=== PATIENT | male | born 1990 ===

== ENCOUNTER 2017-06-11 16:27 | Emergency (ER) | payer OTHER ==
[2017-06-11] MEDS ORDERED: ACETAMINOPHEN TAB 325 MG TAB PO STA (17:56)
[2017-06-11] MEDS ORDERED: SODIUM CHLORIDE 0.9% 1,000 ML IV ONE (17:56)
[2017-06-11] MEDS ORDERED: KETOROLAC 30 MG/ML 1 ML VIAL IVP STA (17:56)
--- NOTE | 2017-06-11 18:04 | ED ---
Wound/Laceration HPI - General Chief Complaint: Wound/Laceration Stated Complaint: Finger Infection Time Seen by Provider: 06/11/17 17:42 Source: patient Mode of arrival: ambulatory Limitations: no limitations - History of Present Illness Initial Comments: 27-year-old male patient presents to the emergency department today for evaluation of an infection to the left index finger. Patient states that he cut his finger while working on a car approximate 2 weeks ago. Patient states that for the last week the finger has been having increased swelling and pain. Patient states that today the pain is radiating up to his shoulder. Patient states that he feels feverish and chilled. Patient is currently at [facility] for rehabilitation related to cocaine use. Patient denies any previous injectable drug use. He denies any numbness or tingling to the hand or finger. He denies any other significant past medical history. Patient denies any recent rash, shortness breath, chest pain, abdominal pain, nausea, vomiting, diarrhea, constipation, back pain, numbness, tingling, dizziness, weakness, hematuria, dysuria, urinary urgency, urinary frequency, headache, visual changes , or any other complaints. - Related Data Home Medications Medication Instructions Recorded Confirmed Acetaminophen Tab [Tylenol Tab] 650 mg PO Q4H PRN 06/11/17 06/11/17 Calcium/Magnesium 1000mg/500mg 1 tab PO TID PRN 06/11/17 06/11/17 Chlorpheniramine Maleate 4 mg PO Q4H PRN 06/11/17 06/11/17 [Chlor-Trimeton] Ibuprofen [Motrin] 600 mg PO Q6HR PRN 06/11/17 06/11/17 Multivitamins, Thera [Multivitamin 1 tab PO DAILY 06/11/17 06/11/17 (formulary)] Ondansetron HCl [Zofran] 8 mg PO Q6H PRN 06/11/17 06/11/17 Ondansetron [Zofran] 4 mg IM Q6H PRN 06/11/17 06/11/17 Sulfamethox-Tmp 800-160Mg [Bactrim 1 tab PO BID 06/11/17 06/11/17 DS 800-160 mg] Thiamine [Vitamin B-1] 100 mg PO DAILY 06/11/17 06/11/17 busPIRone HCl [Buspar] 10 mg PO TID PRN 06/11/17 06/11/17 cloNIDine HCL [Catapres] 0.1 mg PO Q4H PRN 06/11/17 06/11/17 guaiFENesin [guaiFENesin Oral 200 mg PO Q4H PRN 06/11/17 06/11/17 Solution] traZODone HCL 50 - 150 mg PO HS 06/11/17 06/11/17 Previous Rx's Medication Instructions Recorded Cephalexin [Keflex] 500 mg PO Q6H #40 cap 06/11/17 Ibuprofen [Motrin] 600 mg PO Q8HR PRN #30 tab 06/11/17 Sulfamethoxazole/Trimethoprim 1 each PO BID #20 tablet 06/11/17 [Bactrim DS 800-160 mg] Allergies Allergy/AdvReac Type Severity Reaction Status Date / Time No Known Allergies Allergy Verified 06/11/17 17:45 Review of Systems ROS Statement: Those systems with pertinent positive or pertinent negative responses have been documented in the HPI. ROS Other: All systems not noted in ROS Statement are negative. Past Medical History Past Medical History: No Reported History History of Any Multi-Drug Resistant Organisms: None Reported Past Surgical History: No Surgical Hx Reported Past Psychological History: No Psychological Hx Reported Smoking Status: Current every day smoker Past Alcohol Use History: None Reported Past Drug Use History: None Reported General Exam Limitations: no limitations General appearance: alert, in no apparent distress, other (This is a well- developed, well-nourished adult male patient in mild distress related to pain. Vital signs upon presentation are temperature 100.5F, pulse 90, respirations 20 , blood pressure 121/67, pulse ox 98% on room air.) ENT exam: Present: normal exam, normal oropharynx, mucous membranes moist Respiratory exam: Present: normal lung sounds bilaterally. Absent: respiratory distress, wheezes, rales, rhonchi, stridor Cardiovascular Exam: Present: regular rate, normal rhythm, normal heart sounds. Absent: systolic murmur, diastolic murmur, rubs, gallop, clicks GI/Abdominal exam: Present: soft, normal bowel sounds. Absent: distended, tenderness, guarding, rebound, rigid Extremities exam: Present: full ROM, tenderness (Left hand, index finger, left axillary tenderness.), normal capillary refill, other (There is evidence of abscess, erythema, and swelling to the left index finger, erythema extends up into the dorsal hand). Absent: normal inspection, pedal edema, joint swelling, calf tenderness Neurological exam: Present: alert, oriented X3, CN II-XII intact Psychiatric exam: Present: normal affect, normal mood Skin exam: Present: warm, dry, intact, normal color. Absent: rash Course Vital Signs 06/11/17 06/11/17 16:29 22:05 Temperature 100.5 F H 98.4 F Pulse Rate 90 76 Respiratory 20 18 Rate Blood Pressure 121/67 108/58 O2 Sat by Pulse 98 97 Oximetry Procedures - Incision & Drainage Consent Obtained: verbal consent Site: hand (Left index finger) Size (cm): 2 Anesthetic Used: lidocaine 1% I&D Cleaning Method: Betadine Scalpel Used: #11 Needle Aspiration Performed?: No Irrigation Performed?: No I&D Drainage Obtained: Pus, Blood Culture Obtained?: Yes Patient Tolerated Procedure: well Medical Decision Making - Medical Decision Making 27-year-old male patient presented to the emergency department today for evaluation of infection abscess to the left index finger. Physical examination did reveal 2 cm abscess to the lateral aspect of the left index finger, there was an area of fluctuance. Finger was swollen, erythematous. I&D was performed , culture was obtained. Labs are obtained and showed white blood count 12.9, neutrophils 9.3, AST 126, ALT 211, CRP is 38.8. Patient was given vancomycin and Rocephin here in the department. We will discharge patient with a prescription for Keflex and Bactrim. Close monitoring and follow-up as advised. He is instructed to follow up with primary care physician for recheck in 1-2 days. Return parameters discussed in detail. He verbalizes understanding and agree with this plan. - Lab Data Result diagrams: 06/11/17 18:26 06/11/17 18:26 Lab Results 06/11/17 06/11/17 06/11/17 Range/Units 18:00 18:26 18:26 WBC 12.9 H (3.8-10.6) k/uL RBC 4.88 (4.30-5.90) m/uL Hgb 13.7 (13.0-17.5) gm/dL Hct 41.1 (39.0-53.0) % MCV 84.4 (80.0-100.0) fL MCH 28.1 (25.0-35.0) pg MCHC 33.3 (31.0-37.0) g/dL RDW 13.6 (11.5-15.5) % Plt Count 273 (150-450) k/uL Neutrophils % 72 % Lymphocytes % 19 % Monocytes % 4 % Eosinophils % 3 % Basophils % 1 % Neutrophils # 9.3 H (1.3-7.7) k/uL Lymphocytes # 2.5 (1.0-4.8) k/uL Monocytes # 0.5 (0-1.0) k/uL Eosinophils # 0.4 (0-0.7) k/uL Basophils # 0.1 (0-0.2) k/uL Sodium 143 (137-145) mmol/L Potassium 4.3 (3.5-5.1) mmol/L Chloride 103 (98-107) mmol/L Carbon Dioxide 29 (22-30) mmol/L Anion Gap 11 mmol/L BUN 17 (9-20) mg/dL Creatinine 0.70 (0.66-1.25) mg/dL Est GFR (CKD-EPI)AfAm >90 (>60 ml/min/1.73 sqM) Est GFR (CKD-EPI)NonAf >90 (>60 ml/min/1.73 sqM) Glucose 98 (74-99) mg/dL Plasma Lactic Acid Killian (0.7-2.0) mmol/L Calcium 9.8 (8.4-10.2) mg/dL Total Bilirubin 0.2 (0.2-1.3) mg/dL AST 126 H (17-59) U/L ALT 211 H (21-72) U/L Alkaline Phosphatase 95 (38-126) U/L C-Reactive Protein 38.8 H (<10.0) mg/L Total Protein 7.4 (6.3-8.2) g/dL Albumin 3.7 (3.5-5.0) g/dL 06/11/17 Range/Units 18:26 WBC (3.8-10.6) k/uL RBC (4.30-5.90) m/uL Hgb (13.0-17.5) gm/dL Hct (39.0-53.0) % MCV (80.0-100.0) fL MCH (25.0-35.0) pg MCHC (31.0-37.0) g/dL RDW (11.5-15.5) % Plt Count (150-450) k/uL Neutrophils % % Lymphocytes % % Monocytes % % Eosinophils % % Basophils % % Neutrophils # (1.3-7.7) k/uL Lymphocytes # (1.0-4.8) k/uL Monocytes # (0-1.0) k/uL Eosinophils # (0-0.7) k/uL Basophils # (0-0.2) k/uL Sodium (137-145) mmol/L Potassium (3.5-5.1) mmol/L Chloride (98-107) mmol/L Carbon Dioxide (22-30) mmol/L Anion Gap mmol/L BUN (9-20) mg/dL Creatinine (0.66-1.25) mg/dL Est GFR (CKD-EPI)AfAm (>60 ml/min/1.73 sqM) Est GFR (CKD-EPI)NonAf (>60 ml/min/1.73 sqM) Glucose (74-99) mg/dL Plasma Lactic Acid Killian 1.1 (0.7-2.0) mmol/L Calcium (8.4-10.2) mg/dL Total Bilirubin (0.2-1.3) mg/dL AST (17-59) U/L ALT (21-72) U/L Alkaline Phosphatase (38-126) U/L C-Reactive Protein (<10.0) mg/L Total Protein (6.3-8.2) g/dL Albumin (3.5-5.0) g/dL Disposition Clinical Impression: Infected finger laceration, Abscess of finger Disposition: HOME SELF-CARE Condition: Good Instructions: Wound Infection (ED), Abscess Incision and Drainage (ED), Warm Compress or Soak (ED) Additional Instructions: Soak wound in hot water twice daily. Take medications as prescribed and in full. Follow-up with the doctor for recheck in 1-2 days of the wound. Return here immediately for any new, worsening, or concerning symptoms. Prescriptions: Cephalexin [Keflex] 500 mg PO Q6H #40 cap Ibuprofen [Motrin] 600 mg PO Q8HR PRN #30 tab PRN Reason: Pain Sulfamethoxazole/Trimethoprim [Bactrim DS 800-160 mg] 1 each PO BID #20 tablet Is patient prescribed a controlled substance at d/c from ED?: No Referrals: Nonstaff,Physician [Primary Care Provider] - 1-2 days Time of Disposition: 20:30
[2017-06-11 18:32] LABS: Basophils # (A) 0.1 k/uL (0-0.2); Basophils % (A) 1 %; Eosinophils # (A) 0.4 k/uL (0-0.7); Eosinophils % (A) 3 %; HCT 41.1 % (39.0-53.0); HGB 13.7 gm/dL (13.0-17.5); Lymphocytes # (A) 2.5 k/uL (1.0-4.8); Lymphocytes % (A) 19 %; MCH 28.1 pg (25.0-35.0); MCHC 33.3 g/dL (31.0-37.0); MCV 84.4 fL (80.0-100.0); Mean Platelet Volume 6.4; Monocytes # (A) 0.5 k/uL (0-1.0); Monocytes % (A) 4 %; Neutrophils # (A) 9.3 k/uL (1.3-7.7); Neutrophils % (A) 72 %; Platelet Count 273 k/uL (150-450); RBC 4.88 m/uL (4.30-5.90); RDW 13.6 % (11.5-15.5); WBC 12.9 k/uL (3.8-10.6)
[2017-06-11 18:45] LABS: ALT 211 U/L (21-72); AST 126 U/L (17-59); Albumin 3.7 g/dL (3.5-5.0); Alkaline Phosphatase 95 U/L (38-126); Anion Gap 11 mmol/L; Blood Urea Nitrogen 17 mg/dL (9-20); Calcium 9.8 mg/dL (8.4-10.2); Carbon Dioxide 29 mmol/L (22-30); Chloride 103 mmol/L (98-107); Glucose 98 mg/dL (74-99); Potassium 4.3 mmol/L (3.5-5.1); Sodium 143 mmol/L (137-145); Total Bilirubin 0.2 mg/dL (0.2-1.3); Total Protein 7.4 g/dL (6.3-8.2)
[2017-06-11] MEDS ORDERED: cefTRIAXone IN SWFI 2,000 MG/20 ML SYRINGE IVP STA (20:05)
[2017-06-11] MEDS ORDERED: VANCOMYCIN IV PER PHARMACY 1 EACH MISC MISCELLANE PRN (20:05)
[2017-06-11] MEDS ORDERED: VANCOMYCIN 1,000 MG in SODIUM CHLORIDE 0.9% 250 ML IVPB STA (20:09)
[2017-06-11 22:06] VITALS: BP 108/58; PULSE 76; RESP 18; TEMP 98.4
[2017-06-12] MEDS ORDERED: VANCOMYCIN 1,000 MG in SODIUM CHLORIDE 0.9% 250 ML IVPB SCH (05:00)
== END 2017-06-11 22:47 | disposition home or self-care (01) ==
LOC: EC 16:27
DX: S61.211A Laceration without foreign body of left index finger without damage to nail, initial encounter (principal); L08.9 Local infection of the skin and subcutaneous tissue, unspecified; L02.512 Cutaneous abscess of left hand; F17.200 Nicotine dependence, unspecified, uncomplicated; Z79.899 Other long term (current) drug therapy
CPT/HCPCS: 36415; 80053; 83605; 85025; 86140; 87040; 87070; 87205; 99283; 26010; 96365; 96366; 96375 ×2; 96361; J3370; J0696; J1885

== ENCOUNTER 2018-07-04 16:05 | Emergency (ER) | payer OTHER ==
[2018-07-04 16:49] VITALS: BP 100/61; PULSE 70; RESP 24; TEMP 98
[2018-07-04] MEDS ORDERED: KETOROLAC 30 MG/ML 1 ML VIAL IM STA (17:17)
--- NOTE | 2018-07-04 18:23 | XR ---
EXAMINATION TYPE: XR knee complete RT DATE OF EXAM: 07/04/2018 COMPARISON: None HISTORY: Pain 1 week prior fall TECHNIQUE: Three-view right knee FINDINGS: No acute fractures are evident. Joint spaces are preserved. No joint effusion is evident. N o acute fractures or dislocations are evident. IMPRESSION: 1. Normal three-view right knee.
--- NOTE | 2018-07-04 18:24 | XR ---
EXAMINATION TYPE: XR tibia fibula RT DATE OF EXAM: 07/04/2018 COMPARISON: HISTORY: Pain from fall one week prior TECHNIQUE: Three-view right ankle FINDINGS: No acute fractures are evident. Soft tissues appear within normal limits. The ankle mortise is intact. Knee joint space appears unremarkable on these images. Soft tissues are normal. No radiop aque foreign bodies are evident IMPRESSION: 1. Normal right tibia and fibula
[2018-07-04] MEDS ORDERED: CEPHALEXIN 500MG STARTER PACK 4 CAP BTL PO STA (18:44)
[2018-07-04] MEDS ORDERED: IBUPROFEN 600 MG STARTER PACK 4 TAB BTL PO STA (18:44)
--- NOTE | 2018-07-04 18:44 | ED ---
Lower Extremity Injury HPI - General Chief Complaint: Extremity Injury, Lower Stated Complaint: Foot lac/pain Time Seen by Provider: 07/04/18 17:05 Source: patient Mode of arrival: ambulatory Limitations: no limitations - History of Present Illness Initial Comments: 28-year-old male patient presents to the emergency department today for evaluation of pain and swelling to the right lower extremity. Patient states one week ago he fell cutting his leg on some metal. Patient states he has been having pain to the fuentes and near the laceration sites since. Patient states he was not seen and evaluated for this. Had no treatment of the wounds. Patient states there is redness surrounding the area and he is concerned for infection. Denies any fever or chills. Denies any nausea or vomiting. Patient is currently being treated at [facility] for cocaine addiction. He denies any calf pain, tenderness, or swelling. Denies any recent travel. Patient denies any recent rash, shortness breath, chest pain, abdominal pain, diarrhea, constipation, back pain, numbness, tingling, dizziness, weakness, hematuria, dysuria, urinary urgency, urinary frequency, headache, visual changes, or any other complaints. - Related Data Home Medications Medication Instructions Recorded Confirmed Acetaminophen Tab [Tylenol Tab] 650 mg PO Q4H PRN 06/11/17 06/11/17 Calcium/Magnesium 1000mg/500mg 1 tab PO TID PRN 06/11/17 06/11/17 Chlorpheniramine Maleate 4 mg PO Q4H PRN 06/11/17 06/11/17 [Chlor-Trimeton] Ibuprofen [Motrin] 600 mg PO Q6HR PRN 06/11/17 06/11/17 Multivitamins, Thera [Multivitamin 1 tab PO DAILY 06/11/17 06/11/17 (formulary)] Ondansetron HCl [Zofran] 8 mg PO Q6H PRN 06/11/17 06/11/17 Ondansetron [Zofran] 4 mg IM Q6H PRN 06/11/17 06/11/17 Sulfamethox-Tmp 800-160Mg [Bactrim 1 tab PO BID 06/11/17 06/11/17 DS 800-160 mg] Thiamine [Vitamin B-1] 100 mg PO DAILY 06/11/17 06/11/17 busPIRone HCl [Buspar] 10 mg PO TID PRN 06/11/17 06/11/17 cloNIDine HCL [Catapres] 0.1 mg PO Q4H PRN 06/11/17 06/11/17 guaiFENesin [guaiFENesin Oral 200 mg PO Q4H PRN 06/11/17 06/11/17 Solution] traZODone HCL 50 - 150 mg PO HS 06/11/17 06/11/17 Previous Rx's Medication Instructions Recorded Cephalexin [Keflex] 500 mg PO Q6H #40 cap 06/11/17 Ibuprofen [Motrin] 600 mg PO Q8HR PRN #30 tab 06/11/17 Sulfamethoxazole/Trimethoprim 1 each PO BID #20 tablet 06/11/17 [Bactrim DS 800-160 mg] Cephalexin [Keflex] 500 mg PO Q6HR #40 cap 07/04/18 Ibuprofen 800 mg PO TID PRN #30 tablet 07/04/18 Allergies Allergy/AdvReac Type Severity Reaction Status Date / Time No Known Allergies Allergy Verified 06/11/17 17:45 Review of Systems ROS Statement: Those systems with pertinent positive or pertinent negative responses have been documented in the HPI. ROS Other: All systems not noted in ROS Statement are negative. Past Medical History Past Medical History: No Reported History History of Any Multi-Drug Resistant Organisms: MRSA Date of last positivie culture/infection: 06/11/17 MDRO Source:: FINGER Past Surgical History: No Surgical Hx Reported Past Psychological History: No Psychological Hx Reported Smoking Status: Current every day smoker Past Alcohol Use History: None Reported Past Drug Use History: None Reported, Cocaine, Marijuana General Exam Limitations: no limitations General appearance: alert, in no apparent distress, other (Physical well- developed, well-nourished adult male patient in no acute distress. Vital signs upon presentation are temperature 98.2F, pulse 70, respirations 24, blood pressure 100/61, pulse ox 100% on room air.) Eye exam: Present: normal appearance, PERRL, EOMI. Absent: scleral icterus, conjunctival injection, periorbital swelling ENT exam: Present: normal exam, normal oropharynx, mucous membranes moist Respiratory exam: Present: normal lung sounds bilaterally. Absent: respiratory distress, wheezes, rales, rhonchi, stridor Cardiovascular Exam: Present: regular rate, normal rhythm, normal heart sounds. Absent: systolic murmur, diastolic murmur, rubs, gallop, clicks GI/Abdominal exam: Present: soft, normal bowel sounds. Absent: distended, tenderness, guarding, rebound, rigid Extremities exam: Present: full ROM, normal capillary refill, other (Patient has 4 cm linear laceration noted to the anterior fuentes, 3 cm laceration noted to the right lateral knee. There is minimal surrounding erythema. There is some mild surrounding swelling. Skin is otherwise pink, warm, and dry. Cap refills less than 3 seconds. Pedal and posttibial pulses are 2+ and equal bilaterally.). Absent: normal inspection, tenderness, pedal edema, joint swelling, calf tenderness Neurological exam: Present: alert, oriented X3, CN II-XII intact Psychiatric exam: Present: normal affect Skin exam: Present: warm, dry, intact, normal color. Absent: rash Course Vital Signs 07/04/18 16:45 Temperature 98.0 F Pulse Rate 70 Respiratory 24 Rate Blood Pressure 100/61 O2 Sat by Pulse 100 Oximetry Medical Decision Making - Medical Decision Making 28-year-old male patient presented to the emergency department today for evaluation of right leg pain and possible infection of wounds. Physical examination revealed a 4 cm laceration to the left anterior fuentes and a 3 cm laceration to the right lateral knee. There is minimal surrounding erythema and swelling with this. X-rays were obtained and showed no bony abnormalities. Lacerations are [id number] therefore will not be repaired. Patient reports being up-to-date on his tetanus vaccine. He is given Toradol here in the emergency department. I will start Keflex for cellulitis. Return parameters were discussed in detail. He is instructed to follow-up with his primary care physician for recheck in 1-2 days. He verbalizes understanding and agrees with this plan. - Radiology Data Radiology results: report reviewed, image reviewed 3 views of the right knee are obtained. Report was reviewed in its entirety. Impression by Dr. Rincon shows normal three-view right knee. X-ray of the right tib-fib. No acute fractures are evident. Soft tissues appear within normal limits. Ankle mortise is intact. Knee joint spaces appears unremarkable. Soft tissues are normal. No radiopaque foreign bodies are evident. Impression by shows normal right tibia and fibula. Disposition Clinical Impression: Laceration of right lower leg, Laceration of right knee, Cellulitis Disposition: HOME SELF-CARE Condition: Good Instructions (If sedation given, give patient instructions): Laceration (ED), Cellulitis (ED) Additional Instructions: Keep wounds clean and dry. Continue to apply antibiotic ointment. Complete antibiotic prescription and full. Follow-up with her primary care physician for recheck in 1-2 days. Return to the emergency department immediately for any new, worsening, or concerning symptoms. Prescriptions: Ibuprofen 800 mg PO TID PRN #30 tablet PRN Reason: Pain Cephalexin [Keflex] 500 mg PO Q6HR #40 cap Is patient prescribed a controlled substance at d/c from ED?: No Referrals: None,Stated [Primary Care Provider] - 1-2 days Time of Disposition: 18:44
== END 2018-07-04 19:07 | disposition home or self-care (01) ==
LOC: EC 16:05
DX: S81.011A Laceration without foreign body, right knee, initial encounter (principal); L03.115 Cellulitis of right lower limb; F17.200 Nicotine dependence, unspecified, uncomplicated; Z86.14 Personal history of Methicillin resistant Staphylococcus aureus infection; Z79.899 Other long term (current) drug therapy; W19.XXXA Unspecified fall, initial encounter; W26.8XXA Contact with other sharp object(s), not elsewhere classified, initial encounter
CPT/HCPCS: 73590; 73562; 99283; 96372; J1885